=== PATIENT | female | born 1970 | race Caucasian/White ===

== ENCOUNTER 2017-03-19 08:08 | Day surgery (SDC) | payer OTHER ==
[2017-03-18 10:19] VITALS: BMI 47.0
[2017-03-19] MEDS ORDERED: PROPOFOL 20 ML ONE ×4 (09:00→09:24)
[2017-03-19] MEDS ORDERED: MIDAZOLAM HCL 2 MG/2 ML SINGLE DOSE VIAL ONE (09:16)
[2017-03-19 09:50] VITALS: TEMP 97.6
[2017-03-19 11:20] VITALS: BP 110/71; PULSE 74
--- NOTE | 2017-03-22 11:22 | PATH ---
Surgical Pathology Report Patient Name: VIVIAN ARAUJO [facility] Rec. #: [id number] /Age/Gender: 1970 (Age: 46) / F Account: [id number] Location: [facility]-ENDOSCOPY Taken: 03/19/2017 Received: 03/19/2017 Reported: 03/22/2017 Physicians: Frieda Maldonado M.D. Specimen(s) Received A: BX ILEUM B: BX CECUM Clinical History Screening, rectal bleeding, bloody diarrhea Hemorrhoids Final Diagnosis A. ILEUM, BIOPSY: SMALL INTESTINAL MUCOSA WITH FOLLICULAR HYPERPLASIA OF MUCOSA ASSOCIATED LYMPHOID TISSUE. NO ACTIVE INFLAMMATION IDENTIFIED. B. COLON, CECUM, BIOPSY: COLONIC MUCOSA WITH NO PATHOLOGIC CHANGES. NO ACTIVE COLITIS, ARCHITECTURAL DISTORTION, GRANULOMATA, OR DYSPLASIA IDENTIFIED. NO MICROSCOPIC COLITIS IDENTIFIED (NO LYMPHOCYTIC OR COLLAGENOUS COLITIS IDENTIFIED). Comment: The findings may indicate some form of antigenic stimulation to the GI tract. Electronically Signed Neno Wang M.D. Gross Description A. Received in formalin, labeled "biopsy ileum" are 2 lou, irregular portions of soft tissue measuring 0.2 and 0.4 cm. in greatest dimension. The specimens are submitted in toto in one cassette. B. Received in formalin, labeled "biopsy cecum" are 5 lou, irregular portions of soft tissue ranging from 0.3-0.6 cm. in greatest dimension. The specimens are submitted in toto in one cassette. 03/19/2017 saudi03/19/2017
[2017-03-24 16:26] LABS: PARASITES CONCENTRATED SMEAR Final report (.)
== END 2017-03-19 10:40 | disposition home or self-care (01) ==
LOC: JASU-ENDO 08:08
PROVIDERS: ATTEND Internal Medicine Gastroenterology
PROC: 0DBB8ZX Excision of Ileum, Via Natural or Artificial Opening Endoscopic, Diagnostic (ICD-10-PCS; 2017-03-19)
PROC: 0DBH8ZX Excision of Cecum, Via Natural or Artificial Opening Endoscopic, Diagnostic (ICD-10-PCS; principal; 2017-03-19 09:00)
DX: R19.7 Diarrhea, unspecified (principal); K64.8 Other hemorrhoids
CPT/HCPCS: 36415; 87045; 87046; 87177; 87209; 88305-TC